=== PATIENT | male | born 1995 | race Caucasian/White ===

== ENCOUNTER 2023-12-23 00:24 | Emergency (ER) | payer BC ==
[~2023-12-23] VITALS: Ht 172.7 cm; Wt 68.0 kg
[2023-12-23] MEDS ORDERED: diphenhydrAMINE 50 MG/1 ML VIAL ONE (00:44)
[2023-12-23] MEDS ORDERED: LORAZEPAM 2 MG/1 ML VIAL ONE (00:45)
[2023-12-23] MEDS: diphenhydrAMINE 50 MG/1 ML VIAL IV ONE (00:50)
[2023-12-23] MEDS: LORAZEPAM 2 MG/1 ML VIAL IV ONE (00:50)
[2023-12-23] MEDS: diphenhydrAMINE 50 MG/1 ML VIAL IM ONE (00:50)
[2023-12-23] MEDS: LORAZEPAM 2 MG/1 ML VIAL IM ONE (00:50)
[2023-12-23] MEDS ORDERED: ZIPRASIDONE MESYLATE 20 MG VIAL IM ONE (01:28)
[2023-12-23] MEDS: ZIPRASIDONE MESYLATE 20 MG VIAL IM ONE (01:30)
[2023-12-23 01:58] LABS: BASOPHILS % (AUTO) 0.4 % (0.0-2.0); DIFFERENTIAL COMMENT 0; EOSINOPHILS # (AUTO) 0.1 K/uL (0.0-0.7); EOSINOPHILS % (AUTO) 0.9 % (0.0-7.0); HEMATOCRIT 38.2 % (36.7-47.1); HEMOGLOBIN 13.9 g/dL (12.5-16.3); LYMPHOCYTES # (AUTO) 1.7 K/uL (0.8-4.8); LYMPHOCYTES % (AUTO) 19.1 % (20.5-51.5); MEAN CORPUSCULAR HEMOGLOBIN 30.8 uug (23.8-33.4); MEAN CORPUSCULAR HGB CONC 36 g/dL (32.5-36.3); MEAN CORPUSCULAR VOLUME 84.9 fL (73.0-96.2); MONOCYTES # (AUTO) 0.7 K/uL (0.1-1.30); MONOCYTES % (AUTO) 8.2 % (0.0-11.0); NEUTROPHILS # (AUTO) 6.3 K/uL (1.8-8.9); NEUTROPHILS % (AUTO) 71.4 % (38.5-71.5); PLATELET COUNT (AUTO) 233 K/uL (152-348); RED CELL DISTRIBUTION WIDTH 12.5 % (12.1-16.2); WHITE BLOOD COUNT (AUTO) 8.9 K/uL (3.6-10.2)
[2023-12-23 02:05] LABS: CALCIUM 9.2 mg/dL (8.5-10.1); CARBON DIOXIDE 30 mmol/L (21-32); CHLORIDE 102 mmol/L (98-107); CREATININE 0.9 mg/dL (0.6-1.3); GLUCOSE 100 mg/dL (74-106); POTASSIUM 3.3 mmol/L (3.5-5.1); SODIUM SERUM 142 mmol/L (136-145); UREA NITROGEN, BLOOD 14 mg/dL (7-18)
[2023-12-23 02:10] LABS: ALANINE AMINOTRANSFERASE 41 U/L (16-63); ALBUMIN 3.9 g/dL (3.4-5.0); ALKALINE PHOSPHATASE 104 U/L (50-136); ASPARTATE AMINOTRANSFERASE 42 U/L (15-37); BILIRUBIN,TOTAL 0.8 mg/dL (0.2-1.0); ETHANOL < 3 MG/DL (0-10); TOTAL PROTEIN, SERUM 7.6 g/dL (6.4-8.2)
[2023-12-23 02:12] LABS: *BILIRUBIN,URIN NEGATIVE (NEGATIVE); *BLOOD, URINE NEGATIVE (NEGATIVE); *CLARITY,URINE CLEAR (CLEAR); *COLOR,URINE YELLOW (YELLOW); *KETONES,URINE NEGATIVE (NEGATIVE); *PROTEIN,URINE NEGATIVE (NEGATIVE); LEUKOCYTE ESTERASE ,URINE NEGATIVE (NEGATIVE); NITRITE, URINE NEGATIVE (NEGATIVE); UGLUCOSE NEGATIVE (NEGATIVE)
[2023-12-23 02:35] LABS: *AMPHETAMINE, URINE POSITIVE (NEGATIVE); *BARBITURATE, URINE NEGATIVE (NEGATIVE); *BENZODIAZEPINE, URINE POSITIVE (NEGATIVE); *CANNABINOID, URINE POSITIVE (NEGATIVE); *COCCAINE, URINE NEGATIVE (NEGATIVE); *OPIATE, URINE NEGATIVE (NEGATIVE); *PHENCYCLIDINE SCREEN,URINE NEGATIVE (NEGATIVE)
[2023-12-23 02:54] LABS: FENTANYL, URINE POSITIVE (NEGATIVE)
[2023-12-23] MEDS ORDERED: POTASSIUM CHLORIDE 20 MEQ TAB.PRT.SR ONE (04:39)
[2023-12-23] MEDS: POTASSIUM CHLORIDE 20 MEQ TAB.PRT.SR PO ONE (09:50)
[2023-12-23 11:26] VITALS: BP 111/89; O2SAT 98
== END 2023-12-23 11:26 | disposition home or self-care (01) ==
LOC: ER 00:32
DX: F15.10 Other stimulant abuse, uncomplicated (principal)
CPT/HCPCS: 80053; 81003; 85025; 36415; 99284; 96372 ×2; 80320; 80307; J1200; J2060; J3486; A4606; A4663; C1758; G0480